=== PATIENT | male | born 1950 | race Caucasian/White ===

== ENCOUNTER → 2017-02-22 | Outpatient (CLI) | payer BC, OTHER ==
[~2017-02-22] MED LIST: ARTHRITIS PAIN650 M3 PO; ASPIRIN81 M2 PO; CELECOXIB200 MG PO; OMEPRAZOLE40 M1 PO; ONE DAILY FOR1 EAC2 PO; VIT B-12 PO
--- NOTE | ~2017-02-22 | EKG ---
PATIENT: TL BUSBY UNIT #: [id number] Ventricular Rate: 53 BPM Atrial Rate: 53 BPM P-R Interval: 184 ms QRS Duration: 164 ms Q-T Interval: 468 ms QTC Calculation(Bezet): 439 ms P Turner: -7 degrees Calculated R Turner: -80 degrees Calculated T Turner: 14 degrees Diagnosis Line: Sinus bradycardia Diagnosis Line: Left axis deviation Diagnosis Line: Right bundle branch block Diagnosis Line: Septal infarct , age undetermined Diagnosis Line: Abnormal ECG Diagnosis Line: No previous ECGs available Diagnosis Line: Confirmed by SAM ORTEGA MD ([id number]) on 02/24/2017 Diagnosis Line: 2:51:22 PM INTERPRETING MD: JORDAN ROMERO
[2017-02-22 14:31] LABS: HEMATOCRIT 45.1 % (38.0-50.0); HEMOGLOBIN 15.6 gm/dL (13.0-16.0); MEAN CELL VOLUME 97.2 FL (83-96); MEAN CORPUSCULAR HEMOGLOBIN 33.6 PG (28-34); MEAN CORPUSCULAR HGB CONC 34.6 g/dL (30-36); MEAN PLATELET VOLUME 9.1 FL (6.5-11.5); RED BLOOD COUNT 4.64 X10e (3.90-5.60); WHITE BLOOD COUNT 5.7 X10e3 (4.0-10.5)
[2017-02-22 15:07] LABS: ALBUMIN SERUM 4.2 g/dL (3.5-5.0); BILIRUBIN,TOTAL 0.9 mg/dL (0.2-2.0); BUN/CREATININE RATIO 13.33; CREATININE SERUM 0.9 mg/dL (0.6-1.4); GLOM FILT RATE Estimated 89.9 mL/min (>60); POTASSIUM 4.2 mmol/L (3.5-5.1); PROTEIN TOTAL SERUM 6.3 g/dL (6.0-8.3)
== END | disposition home or self-care (01) ==
LOC: CAMB 12:32
PROVIDERS: Specialist
DX: Z01.818 Encounter for other preprocedural examination (principal); K40.90 Unilateral inguinal hernia, without obstruction or gangrene, not specified as recurrent
CPT/HCPCS: 36415; 80053; 85027; 93005

== ENCOUNTER → 2017-02-28 | Day surgery (SDC) | payer BC, OTHER ==
--- NOTE | ~2017-02-28 | OR ---
Unit #: [id number] #: [id number] Patient: TL AN BLAYNE [id number] [address] [address] [id number] O MR#: [id number] NAME: TL AN ROOM: Date of Procedure: 02/28/2017 Admission Date: 02/28/2017 Surgeon: Madhu Mills M.D. : 1950 Attending Physician: Madhu Mills M.D. Primary Care Physician: Ade Harris M.D. OPERATIVE REPORT PREOPERATIVE DIAGNOSIS Left inguinal hernia. POSTOPERATIVE DIAGNOSIS Indirect left inguinal hernia. PROCEDURE PERFORMED Open repair with PerFix plug mesh. ANESTHESIA General endotracheal anesthesia. ESTIMATED BLOOD LOSS Less than 20 mL. INDICATIONS FOR PROCEDURE Mr. An is a 66-year-old gentleman, who presented to the office with an enlarging and painful left inguinal hernia that was reducible. DESCRIPTION OF PROCEDURE The patient was admitted to [facility], positively identified, and transported to the operating room, and after induction of general endotracheal anesthesia, he received IV antibiotics per SCIP protocol and was prepped and draped in usual sterile fashion. The patient already clipped his lower abdominal wall hair. A transverse incision in the skin line was made over the inguinal canal. I dissected down and exposed the external oblique aponeurosis. The aponeurosis opened in the direction of its fibers to include the external ring. The cord structures were from the underlying soft tissue and elevated from the floor of the inguinal canal and encircled with a Maty drain. The ilioinguinal hypogastric nerves were identified and preserved. On evaluation of the inguinal canal, the patient had an indirect hernia sac that was from the cord structures which were preserved. Along the medial portion of the internal ring, there was some further weakness of the lower abdominal wall, but there was a well-defined defect at the indirect ring. The hernia sac was reduced back in the peritoneal cavity and held in reduction with a medium PerFix plug. The plug was secured with multiple 0 Ethibond interrupted sutures. Because of the extension medially and the weakness of the floor of the inguinal canal, a Bassini-type repair taking the conjoined tendon and securing it, shelving edge of inguinal ligament was also performed to further strengthen the floor of the inguinal canal. The onlay mesh was secured to the pubic Unit #: [id number] #: [id number] Patient: TL AN medially, stretched across the inguinal canal and the tails were crossed around the spermatic cord as it passed through the abdominal wall. Once the mesh was adequately positioned and secured, 30 mL of 0.5% Marcaine with epinephrine was infiltrated into each trocar site. The cord was placed back in the anatomic position and then the soft tissue was irrigated. The external oblique aponeurosis was reapproximated with 0 Ethibond interrupted suture. 2-0 Vicryl suture was used to close the soft tissue and then the skin was reapproximated with 4-0 Monocryl subcuticular closure and Dermabond skin adhesive. Sponges and needle counts were correct x3. The patient tolerated the procedure well and transported to recovery in stable condition. Findings and postoperative instructions were discussed with his family. Dictated by... Rosanna Kamara/silas TD: 02/28/2017 16:00 JOB #: [id number] OPERATIVE REPORT Page 1 of 1 X Madhu Mills MD X PROCEDURE OPERATIVE NOTE
== END | disposition home or self-care (01) ==
LOC: CSUR 09:51
DX: K40.90 Unilateral inguinal hernia, without obstruction or gangrene, not specified as recurrent (principal); F17.210 Nicotine dependence, cigarettes, uncomplicated; K21.9 Gastro-esophageal reflux disease without esophagitis; Z87.442 Personal history of urinary calculi; Z90.49 Acquired absence of other specified parts of digestive tract; Z98.890 Other specified postprocedural states; Z79.82 Long term (current) use of aspirin; Z79.899 Other long term (current) drug therapy
CPT/HCPCS: C1781; J0330; J0690; J1100; J1885; J2250; J2405; J2710; J3010